=== PATIENT | female | born 1945 | race Caucasian/White ===

== ENCOUNTER 2024-06-10 07:15 | Day surgery (SDC) | payer MEDICARE, BC ==
[2024-06-10] MEDS ORDERED: Lactated Ringers 1,000 ML IV ONE (07:16)
[2024-06-10] MEDS ORDERED: Propofol 200 MG/20 ML SDV ONE ×4 (07:40→09:35)
[2024-06-10] MEDS ORDERED: fentaNYL 100 MCG/2 ML SDV ONE (07:41)
[2024-06-10] MEDS ORDERED: ceFAZolin 2 GM Vial ONE (07:42)
[2024-06-10] MEDS ORDERED: dexmedeTOMIDine HCl 200 MCG/2 ML SDV ONE (07:43)
[2024-06-10] MEDS ORDERED: Dexamethasone 4 MG/ML 5 ML MDV ONE (07:44)
[2024-06-10] MEDS ORDERED: EPINEPHrine 1 MG/ML SDV ONE (07:48)
[2024-06-10] MEDS ORDERED: Ropivacaine 0.5% 5 MG/ML 30 ML SDV ONE (07:48)
[2024-06-10] MEDS ORDERED: ePHEDrine 50 MG/ML SDV ONE (08:33)
[2024-06-10] MEDS ORDERED: Lactated Ringers 1,000 ML ONE (09:21)
[2024-06-10] MEDS: Morphine 8 MG, EPINEPHrine 0.3 MG, Cefuroxime 750 MG, Ketorolac 30 MG, Sodium Chloride ... PRN (09:25)
[2024-06-10] MEDS: Vancomycin 1 GM SDV ONE (09:32)
[2024-06-10] MEDS: Tranexamic Acid 1,000 MG/10 ML Vial ONE (09:32)
[2024-06-10] MEDS ORDERED: HYDROmorphone 0.5 MG/0.5 ML Syringe IVPUSH PRN (10:19)
[2024-06-10] MEDS ORDERED: Ondansetron 4 MG/2 ML SDV IVPUSH PRN (10:19)
[2024-06-10] MEDS ORDERED: fentaNYL 100 MCG/2 ML SDV IVPUSH PRN (10:19)
[2024-06-10] MEDS: Acetaminophen/HYDROcodone 325-5 MG Tab PO PRN (11:00)
== END 2024-06-10 15:30 | disposition home or self-care (01) ==
LOC: JD.SDS 07:15
PROVIDERS: ATTEND Orthopaedic Surgery
DX: M17.12 Unilateral primary osteoarthritis, left knee (principal); I10 Essential (primary) hypertension; E03.9 Hypothyroidism, unspecified; E78.5 Hyperlipidemia, unspecified; Z91.09 Other allergy status, other than to drugs and biological substances; Z79.899 Other long term (current) drug therapy
CPT/HCPCS: 0055T; 27447; 64447; 73560; 97110; 97116; 97161; A9270; C1713; C1776; J0171; J0690; J0697; J1100; J1885; J2270; J2704; J2795; J3010; J3370; J7120; 01400; 99100; J3490